=== PATIENT | female | born 1985 | race American Indian/Alaskan Native ===

== ENCOUNTER 2016-06-17 15:23 | Emergency (ER) | payer MEDICAID ==
[2016-06-17 17:19] LABS: Basophils % (Auto) 1.1 % (0.0-1.8); Eosinophils % (Auto) 1.3 % (0.0-4.3); Hematocrit 40.8 % (30.3-42.9); Hemoglobin 13.4 gm/dl (10.1-14.3); Mean Corpuscular HGB Conc 33 % (30-34); Mean Corpuscular Hemoglobin 29 pg (28-32); Mean Corpuscular Volume 87 fl (79-97); Platelet Count 344 K/mm3 (140-440); Red Cell Distribution Width 13.3 % (13.2-15.2); White Blood Count 7.9 K/mm3 (4.5-11.0)
[2016-06-17 17:27] LABS: Alanine Aminotransferase 14 units/L (7-56); Albumin 4.2 g/dL (3.9-5); Albumin/Globulin Ratio 1.1 %; Alkaline Phosphatase 76 units/L (35-129); BUN/Creatinine Ratio 12.85; Bilirubin,Total 0.5 mg/dL (0.1-1.2); Blood Urea Nitrogen 9 mg/dL (7-17); Carbon Dioxide 27 mmol/L (22-30); Glucose 97 mg/dL (65-100); Lipase 24 units/L (13-60)
[2016-06-17 17:28] LABS: Anion Gap 16 mmol/L; Potassium 3.9 mmol/L (3.6-5.0); Sodium 139 mmol/L (137-145)
[2016-06-18] MEDS ORDERED: MORPHINE IV ONE ×2 (02:18→05:07)
[2016-06-18] MEDS ORDERED: NACL 0.9% 1000 ML 1,000 ML IV ONE ×2 (02:18→05:07)
[2016-06-18] MEDS ORDERED: ZOFRAN IV ONE ×2 (02:18→05:07)
--- NOTE | 2016-06-18 02:27 | Emergency Department Report ---
ED Abdominal Pain HPI - General Chief Complaint: Abdominal Pain Stated Complaint: FEVER/RASH/DIARRHEA/ABD PAIN Time Seen by Provider: 06/18/16 01:11 Source: patient Mode of arrival: Ambulatory Limitations: No Limitations - History of Present Illness Initial Comments: 30-year-old female presents emergency department complaining of back pain, abdominal pain, and diarrhea. Patient reports onset of symptoms last night. Patient describes a sharp, burning pain in her lower back that radiates into her abdomen. Patient also reports a pulling sensation in her abdomen. Patient reports profuse, watery diarrhea last night. She denies seeing blood. She reports nausea, but no vomiting. Patient states she also had a fever of 103F at home. Patient states that she has not been able to urinate since last she had a bowel movement which was approximately midnight last night. There are no other complaints. MD Complaint: abdominal pain -: Gradual, days(s) (1) Location: diffuse Migration to: no migration Quality: sharp, other ("pulling") Consistency: constant Improves With: nothing Worsens With: nothing Associated Symptoms: nausea, diarrhea, fever - Related Data Previous Rx's Medication Instructions Recorded Last Taken Type Acetaminophen/Codeine [Tylenol #3] 1 tab PO Q6H PRN #10 tab 07/12/13 Unknown Rx Fluconazole [Diflucan TAB] 150 mg PO ONCE #2 tablet 03/26/15 Unknown Rx Nitrofurantoin [place]/M-Cryst 100 mg PO Q12HR #14 capsule 03/26/15 Unknown Rx [Macrobid CAP] Diphenoxylate/Atropine [Lomotil] 1 tab PO Q4H PRN #20 tablet 06/18/16 Unknown Rx Promethazine [Phenergan TAB] 25 mg PO Q6HR PRN #20 tab 06/18/16 Unknown Rx traMADol [Ultram] 50 mg PO Q6HR PRN #20 tablet 06/18/16 Unknown Rx Allergies Allergy/AdvReac Type Severity Reaction Status Date / Time acetaminophen [From Tylenol] Allergy Rash Verified 06/17/16 16:17 latex Allergy Hives Verified 06/17/16 16:17 Penicillins Allergy Hives Verified 06/17/16 16:17 ED Review of Systems ROS: Stated complaint: FEVER/RASH/DIARRHEA/ABD PAIN Other details as noted in HPI Comment: All other systems reviewed and negative Constitutional: fever Gastrointestinal: abdominal pain, nausea, diarrhea Genitourinary: as per HPI Musculoskeletal: back pain ED Past Medical Hx - Past Medical History Previous Medical History?: Yes Hx Hypertension: Yes - Surgical History Past Surgical History?: Yes Additional Surgical History: C-Sections 2007, 2009. mass removed from abd in 2014 - Family History Family history: no significant - Social History Smoking Status: Never Smoker Substance Use Type: None - Medications Home Medications: Home Medications Medication Instructions Recorded Confirmed Last Taken Type Acetaminophen/Codeine [Tylenol #3] 1 tab PO Q6H PRN #10 tab 07/12/13 Unknown Rx Fluconazole [Diflucan TAB] 150 mg PO ONCE #2 tablet 03/26/15 Unknown Rx Nitrofurantoin [place]/M-Cryst 100 mg PO Q12HR #14 capsule 03/26/15 Unknown Rx [Macrobid CAP] Diphenoxylate/Atropine [Lomotil] 1 tab PO Q4H PRN #20 tablet 06/18/16 Unknown Rx Promethazine [Phenergan TAB] 25 mg PO Q6HR PRN #20 tab 06/18/16 Unknown Rx traMADol [Ultram] 50 mg PO Q6HR PRN #20 tablet 06/18/16 Unknown Rx ED Physical Exam - General Limitations: No Limitations General appearance: alert, in no apparent distress - Head Head exam: Present: atraumatic, normocephalic - Eye Eye exam: Present: normal appearance, PERRL, EOMI - ENT ENT exam: Present: normal exam, normal orophraynx, mucous membranes moist - Neck Neck exam: Present: normal inspection, full ROM. Absent: tenderness - Respiratory Respiratory exam: Present: normal lung sounds bilaterally. Absent: respiratory distress - Cardiovascular Cardiovascular Exam: Present: regular rate, normal rhythm, normal heart sounds - GI/Abdominal GI/Abdominal exam: Present: soft, tenderness (mild right lower quadrant tenderness to palpation), normal bowel sounds. Absent: distended, guarding, rebound - Extremities Exam Extremities exam: Present: normal inspection, full ROM. Absent: tenderness - Back Exam Back exam: Present: normal inspection, full ROM, tenderness (diffuse lumbar tenderness to palpation) - Neurological Exam Neurological exam: Present: alert, oriented X3. Absent: motor sensory deficit - Skin Skin exam: Present: warm, dry, intact ED Course Vital Signs 06/17/16 06/18/16 06/18/16 16:13 00:22 00:26 Temperature 98.3 F Pulse Rate 95 H 77 73 Respiratory 16 12 14 Rate Blood Pressure 127/92 129/80 O2 Sat by Pulse 100 99 Oximetry 06/18/16 06/18/16 06/18/16 00:30 00:36 00:40 Temperature Pulse Rate 80 76 76 Respiratory 19 18 15 Rate Blood Pressure 129/80 123/74 123/74 O2 Sat by Pulse 100 100 100 Oximetry 06/18/16 06/18/16 06/18/16 00:45 00:50 00:56 Temperature Pulse Rate 71 70 79 Respiratory 12 12 17 Rate Blood Pressure 122/72 122/72 122/72 O2 Sat by Pulse 100 100 100 Oximetry 06/18/16 06/18/16 06/18/16 01:00 01:06 01:10 Temperature Pulse Rate 65 77 87 Respiratory 17 14 13 Rate Blood Pressure 123/72 123/72 123/72 O2 Sat by Pulse 100 100 100 Oximetry 06/18/16 06/18/16 06/18/16 01:15 01:20 01:26 Temperature Pulse Rate 76 72 77 Respiratory 17 18 16 Rate Blood Pressure 132/83 132/83 132/83 O2 Sat by Pulse 100 100 100 Oximetry 06/18/16 06/18/16 06/18/16 01:30 01:36 01:40 Temperature Pulse Rate 65 72 77 Respiratory 17 19 20 Rate Blood Pressure 128/81 128/81 128/81 O2 Sat by Pulse 100 100 100 Oximetry 06/18/16 06/18/16 06/18/16 01:45 01:50 01:56 Temperature Pulse Rate 72 81 73 Respiratory 14 15 13 Rate Blood Pressure 131/86 131/86 131/86 O2 Sat by Pulse 100 100 100 Oximetry 06/18/16 06/18/16 06/18/16 02:00 02:06 02:10 Temperature Pulse Rate 74 70 85 Respiratory 15 18 17 Rate Blood Pressure 135/86 135/86 135/86 O2 Sat by Pulse 100 100 99 Oximetry 06/18/16 06/18/16 06/18/16 02:15 02:20 02:26 Temperature Pulse Rate 68 73 75 Respiratory 16 20 19 Rate Blood Pressure 137/84 137/84 137/84 O2 Sat by Pulse 100 99 100 Oximetry 06/18/16 06/18/16 06/18/16 02:30 02:36 02:40 Temperature Pulse Rate 69 70 70 Respiratory 8 L 12 10 L Rate Blood Pressure 134/78 134/78 134/78 O2 Sat by Pulse 99 100 100 Oximetry 06/18/16 02:45 Temperature Pulse Rate 87 Respiratory 17 Rate Blood Pressure 119/74 O2 Sat by Pulse 100 Oximetry ED Medical Decision Making - Lab Data Result diagrams: 06/17/16 16:55 06/17/16 16:55 - Medical Decision Making Lab results reviewed and discussed with the patient. Following IV fluids, the patient was able to spontaneously urinate. Giving additional IV fluids. Patient will be discharged home with supportive care to follow-up with her primary care physician. - Differential Diagnosis enteritis, dehydration, electrolyte abnormality, UTI, muscle spasm Critical care attestation.: If time is entered above; I have spent that time in minutes in the direct care of this critically ill patient, excluding procedure time. ED Disposition Clinical Impression: Diarrhea in adult patient Disposition: DISCHARGED TO HOME OR SELFCARE Is pt being admited?: No Condition: Stable Instructions: Abdominal Pain (ED), Acute Diarrhea (ED) Prescriptions: Diphenoxylate/Atropine [Lomotil] 1 tab PO Q4H PRN #20 tablet PRN Reason: Diarrhea Promethazine [Phenergan TAB] 25 mg PO Q6HR PRN #20 tab PRN Reason: Nausea traMADol [Ultram] 50 mg PO Q6HR PRN #20 tablet PRN Reason: Pain Referrals: PRIMARY CARE, [Primary Care Provider] - 3-5 Days Time of Disposition: 05:41
[2016-06-18 02:57] VITALS: BP 119/74
[2016-06-18 04:48] LABS: Bacteria,Urine 1+ /HPF (Negative); Bilirubin,Urine NEG (Negative); Blood,Urine NEG (Negative); Ketones,Urine NEG (Negative); Leukocyte Esterase,Urine NEG (Negative); Mucus,Urine 2+ /HPF; Nitrite,Urine NEG (Negative); Protein,Urine <15 mg/dL mg/dL (Negative); Urobilinogen,Urine < 2.0 mg/dL (<2.0)
== END 2016-06-18 07:08 | disposition home or self-care (01) ==
LOC: ED 15:23
DX: R19.7 Diarrhea, unspecified (principal); R10.31 Right lower quadrant pain; M54.5 Low back pain; I10 Essential (primary) hypertension; Z88.0 Allergy status to penicillin; Z91.040 Latex allergy status; Z88.8 Allergy status to other drugs, medicaments and biological substances
CPT/HCPCS: 36415; 51701; 80053; 81001; 81025; 83690; 85025; 96361; 96374; 96375; 96376; 99284; J2270; J2405; J7030; 82962

== ENCOUNTER 2016-12-16 09:32 | Emergency (ER) | payer SELFPAY ==
--- NOTE | 2016-12-16 11:44 | Emergency Department Report ---
ED ENT HPI - General Chief complaint: Sore Throat Stated complaint: STIFF NECK/FEVER/ SORE THROAT Time Seen by Provider: 12/16/16 11:25 Source: patient Mode of arrival: Ambulatory Limitations: No Limitations - History of Present Illness Initial comments: pt is a 31 y/o aaf with hx of frequent sinusitis who presents for sinus pain fever and sore throat x 1 week, note white patches on tonsils x 4 days which prompted pt to seek treatment in ed. associated symptoms include fever 102. 3 subjective at home, dysphagia, and sinus pressure. pt has not attempted otc pain or cold medicine, MD complaint: sore throat, ear pain Onset/Timin -: week(s) Location: R ear, L ear, nose, throat Severity: moderate Severity scale (0 -10): 7 Quality: burning, sharp Consistency: constant Improves with: none Worsens with: swallowing, position Associated Symptoms: fever, cough, pain with swallowing, sore throat, tinnitus, rhinorrhea - Related Data Previous Rx's Medication Instructions Recorded Last Taken Type Acetaminophen/Codeine [Tylenol #3] 1 tab PO Q6H PRN #10 tab 07/12/13 Unknown Rx Fluconazole [Diflucan TAB] 150 mg PO ONCE #2 tablet 03/26/15 Unknown Rx Nitrofurantoin [place]/M-Cryst 100 mg PO Q12HR #14 capsule 03/26/15 Unknown Rx [Macrobid CAP] Diphenoxylate/Atropine [Lomotil] 1 tab PO Q4H PRN #20 tablet 06/18/16 Unknown Rx Promethazine [Phenergan TAB] 25 mg PO Q6HR PRN #20 tab 06/18/16 Unknown Rx traMADol [Ultram] 50 mg PO Q6HR PRN #20 tablet 06/18/16 Unknown Rx Benzocaine/Menth/Cetylpyrd 8 each MM QID PRN #3 packet 12/16/16 Unknown Rx [Cepacol X Strength] Clindamycin [Clindamycin CAP] 300 mg PO Q8H #30 cap 12/16/16 Unknown Rx Ibuprofen [Motrin 800 MG tab] 800 mg PO Q8HR PRN #30 tablet 12/16/16 Unknown Rx Oxymetazoline 0.05% [Afrin] 1 spray NS 2XWHS #1 bottle 12/16/16 Unknown Rx Allergies Allergy/AdvReac Type Severity Reaction Status Date / Time acetaminophen [From Tylenol] Allergy Rash Verified 06/17/16 16:17 latex Allergy Hives Verified 06/17/16 16:17 Penicillins Allergy Hives Verified 06/17/16 16:17 sulfamethoxazole Allergy Swelling Verified 12/16/16 09:49 [From Bactrim] trimethoprim [From Bactrim] Allergy Swelling Verified 12/16/16 09:49 ED Dental HPI - General Chief complaint: Sore Throat Stated complaint: STIFF NECK/FEVER/ SORE THROAT Time Seen by Provider: 12/16/16 11:25 Source: patient Mode of arrival: Ambulatory Limitations: No Limitations - Related Data Previous Rx's Medication Instructions Recorded Last Taken Type Acetaminophen/Codeine [Tylenol #3] 1 tab PO Q6H PRN #10 tab 07/12/13 Unknown Rx Fluconazole [Diflucan TAB] 150 mg PO ONCE #2 tablet 03/26/15 Unknown Rx Nitrofurantoin [place]/M-Cryst 100 mg PO Q12HR #14 capsule 03/26/15 Unknown Rx [Macrobid CAP] Diphenoxylate/Atropine [Lomotil] 1 tab PO Q4H PRN #20 tablet 06/18/16 Unknown Rx Promethazine [Phenergan TAB] 25 mg PO Q6HR PRN #20 tab 06/18/16 Unknown Rx traMADol [Ultram] 50 mg PO Q6HR PRN #20 tablet 06/18/16 Unknown Rx Benzocaine/Menth/Cetylpyrd 8 each MM QID PRN #3 packet 12/16/16 Unknown Rx [Cepacol X Strength] Clindamycin [Clindamycin CAP] 300 mg PO Q8H #30 cap 12/16/16 Unknown Rx Ibuprofen [Motrin 800 MG tab] 800 mg PO Q8HR PRN #30 tablet 12/16/16 Unknown Rx Oxymetazoline 0.05% [Afrin] 1 spray NS 2XWHS #1 bottle 12/16/16 Unknown Rx Allergies Allergy/AdvReac Type Severity Reaction Status Date / Time acetaminophen [From Tylenol] Allergy Rash Verified 06/17/16 16:17 latex Allergy Hives Verified 06/17/16 16:17 Penicillins Allergy Hives Verified 06/17/16 16:17 sulfamethoxazole Allergy Swelling Verified 12/16/16 09:49 [From Bactrim] trimethoprim [From Bactrim] Allergy Swelling Verified 12/16/16 09:49 ED Review of Systems ROS: Stated complaint: STIFF NECK/FEVER/ SORE THROAT Other details as noted in HPI ED Past Medical Hx - Past Medical History Previous Medical History?: Yes Hx Hypertension: Yes - Surgical History Past Surgical History?: Yes Additional Surgical History: C-Sections 2007, 2009. mass removed from abd in 2014 - Social History Smoking Status: Current Some Day Smoker Substance Use Type: Alcohol - Medications Home Medications: Home Medications Medication Instructions Recorded Confirmed Last Taken Type Acetaminophen/Codeine [Tylenol #3] 1 tab PO Q6H PRN #10 tab 07/12/13 Unknown Rx Fluconazole [Diflucan TAB] 150 mg PO ONCE #2 tablet 03/26/15 Unknown Rx Nitrofurantoin [place]/M-Cryst 100 mg PO Q12HR #14 capsule 03/26/15 Unknown Rx [Macrobid CAP] Diphenoxylate/Atropine [Lomotil] 1 tab PO Q4H PRN #20 tablet 06/18/16 Unknown Rx Promethazine [Phenergan TAB] 25 mg PO Q6HR PRN #20 tab 06/18/16 Unknown Rx traMADol [Ultram] 50 mg PO Q6HR PRN #20 tablet 06/18/16 Unknown Rx Benzocaine/Menth/Cetylpyrd 8 each MM QID PRN #3 packet 12/16/16 Unknown Rx [Cepacol X Strength] Clindamycin [Clindamycin CAP] 300 mg PO Q8H #30 cap 12/16/16 Unknown Rx Ibuprofen [Motrin 800 MG tab] 800 mg PO Q8HR PRN #30 tablet 12/16/16 Unknown Rx Oxymetazoline 0.05% [Afrin] 1 spray NS 2XWHS #1 bottle 12/16/16 Unknown Rx ED Physical Exam - General Limitations: No Limitations - Head Head exam: Present: atraumatic, normocephalic - Eye Eye exam: Present: normal appearance, PERRL, EOMI Pupils: Present: normal accommodation - Expanded ENT Exam Expanded TM/Canal exam: Erythema: Right TM, Left TM, Canal Tenderness: Right TM, Left TM Mouth exam: Present: tongue normal. Absent: drooling, trismus, muffled voice, tongue elevation, laceration Teeth exam: Present: normal inspection Throat exam: Positive: tonsillar erythema, tonsillomegaly, tonsillar exudate. Negative: R peritonsillar mass, L peritonsillar mass - Neck Neck exam: Present: normal inspection, full ROM, lymphadenopathy. Absent: tenderness, thyromegaly - Respiratory Respiratory exam: Present: normal lung sounds bilaterally. Absent: respiratory distress, wheezes, rhonchi, stridor, chest wall tenderness - Cardiovascular Cardiovascular Exam: Present: regular rate, normal rhythm. Absent: systolic murmur, diastolic murmur, rubs, gallop - GI/Abdominal GI/Abdominal exam: Present: soft, normal bowel sounds - Rectal Rectal exam: Present: deferred - Extremities Exam Extremities exam: Present: normal inspection - Back Exam Back exam: Present: normal inspection - Neurological Exam Neurological exam: Present: alert, oriented X3, normal gait, reflexes normal - Psychiatric Psychiatric exam: Present: normal affect, normal mood - Skin Skin exam: Present: warm, dry, intact, normal color. Absent: rash ED Course Vital Signs 12/16/16 09:46 Temperature 98.5 F Pulse Rate 98 H Respiratory 18 Rate Blood Pressure 153/100 O2 Sat by Pulse 100 Oximetry ED Medical Decision Making - Medical Decision Making pt is a 31 y/o aaf with hx of frequent sinusitis who presents for sinus pain fever and sore throat x 1 week, note white patches on tonsils x 4 days which prompted pt to seek treatment in ed. associated symptoms include fever 102. 3 subjective at home, dysphagia, and sinus pressure. pt has not attempted otc pain or cold medicine, exam: tm bilat erythema pain no effusion , nose: polyps turbinate erythema yellow rhinorrhea , pharnyx: moderate erythem white exudate, no lesion uvula midline no stridor lungs clear bilat, pt is allergic to pcn, advise zpack ususally dose not work, will tx with Clindamycin , Ibuprofen, Afrin x 3 days, Cepacol lozenges pt will follow up with [facility] for follow and pcp affiliation pt verbalized agreement and understanding with same. Critical care attestation.: If time is entered above; I have spent that time in minutes in the direct care of this critically ill patient, excluding procedure time. ED Disposition Clinical Impression: Pharyngitis Qualifiers: Pharyngitis/tonsillitis etiology: other specified organisms Qualified Code(s): J02.8 - Acute pharyngitis due to other specified organisms Disposition: DC-01 TO HOME OR SELFCARE Is pt being admited?: No Does the pt Need Aspirin: No Condition: Good Instructions: Pharyngitis (ED) Additional Instructions: follow up with [facility] [phone] Prescriptions: Benzocaine/Menth/Cetylpyrd [Cepacol X Strength] 8 each MM QID PRN #3 packet PRN Reason: Pain Clindamycin [Clindamycin CAP] 300 mg PO Q8H #30 cap Ibuprofen [Motrin 800 MG tab] 800 mg PO Q8HR PRN #30 tablet PRN Reason: pain / fever Oxymetazoline 0.05% [Afrin] 1 spray NS 2XWHS #1 bottle Referrals: PRIMARY CARE, [Primary Care Provider] - 3-5 Days Forms: Work/School Release Form(ED) Time of Disposition: 11:55
[2016-12-16 12:01] VITALS: BP 132/94
== END 2016-12-16 12:01 | disposition home or self-care (01) ==
LOC: ED 09:32
DX: J02.8 Acute pharyngitis due to other specified organisms (principal); I10 Essential (primary) hypertension; F17.200 Nicotine dependence, unspecified, uncomplicated
CPT/HCPCS: 99282

== ENCOUNTER 2017-01-30 22:01 | Emergency (ER) | payer SELFPAY ==
[2017-01-30] MEDS ORDERED: TORADOL ONE (22:26)
[2017-01-30] MEDS ORDERED: ZESTRIL ONE (22:27)
[2017-01-30] MEDS ORDERED: ZESTRIL PO ONE (22:29)
[2017-01-30] MEDS ORDERED: TORADOL IM ONE (22:30)
--- NOTE | 2017-01-30 23:17 | XRay Report ---
FINAL REPORT PROCEDURE: XR ANKLE 3+V LT TECHNIQUE: LEFT ankle radiographs, AP, lateral, and oblique views. CPT 47904 HISTORY: fall ankle pain COMPARISON: No prior studies are available for comparison. FINDINGS: Internal fixation screws are identified in the lateral malleolus and posterior talus. An acute fracture is not identified. Narrowing of the talar navicular joint space is noted. IMPRESSION: Internal fixation screws are noted through the lateral malleolus and posterior talus. Comparison with prior studies would be of help. No acute fracture. Osteoarthritis..
[2017-01-31 03:51] VITALS: BP 142/97
--- NOTE | 2017-01-31 03:59 | XRay Report ---
FINAL REPORT EXAM: XR SPINE LUMBOSACRAL 2-3V HISTORY: fall on her lower back TECHNIQUE: Three views the lumbar spine were obtained. FINDINGS: There is moderate narrowing of the L5-S1 disc. The remaining disc heights and alignment appear normal. There is no evidence of fracture. The soft tissues are unremarkable. IMPRESSION: L5-S1 disc degeneration. No acute injury.
--- NOTE | 2017-01-31 04:00 | XRay Report ---
FINAL REPORT EXAM: XR SPINE SACRUM/COCCYX 2+V HISTORY: fall TECHNIQUE: Four views of the sacrum and coccyx were obtained. FINDINGS: There is no evidence of fracture or soft tissue injury. The SI joints appear normal. IMPRESSION: Normal exam.
--- NOTE | 2017-01-31 04:23 | Emergency Department Report ---
ED Back Pain/Injury HPI - General Chief Complaint: Back Pain/Injury Stated Complaint: GROUND LEVEL FALL/LT ANKLE PX/BACK PX Time Seen by Provider: 01/31/17 02:57 Source: patient Limitations: No Limitations - History of Present Illness Initial Comments: 30-year-old female presents here with complaints of fall while going down some steps. This happened 5 days ago. Patient fell backwards on her lower back and tailbone. Patient has used the leftover ultram from a prior problem and this has not produced much relief. No fecal or urinary incontinence. Patient is experiencing pain radiating down the posterior aspect of her left leg -: Sudden, days(s) (5, pain is progressively getting worse) Similar Symptoms Previously: Yes Place: home Radiation: left leg (posterior aspect) Severity: moderate Severity scale (0 -10): 8 Quality: sharp, stabbing, aching, tingling Consistency: constant Improves With: immobilization Worsens With: movement, supine, sitting upright, walking Associated Symptoms: weakness, numbness (posterior aspect left leg), difficulty walking. denies: confusion, chest pain, difficulty urinating, diaphoresis, incontinence, fever/chills, constipation, headaches, abdominal pain, loss of appetite, malaise, nausea/vomiting, rash, seizure, shortness of breath, syncope - Related Data Previous Rx's Medication Instructions Recorded Last Taken Type Acetaminophen/Codeine [Tylenol #3] 1 tab PO Q6H PRN #10 tab 07/12/13 Unknown Rx Fluconazole [Diflucan TAB] 150 mg PO ONCE #2 tablet 03/26/15 Unknown Rx Nitrofurantoin [place]/M-Cryst 100 mg PO Q12HR #14 capsule 03/26/15 Unknown Rx [Macrobid CAP] Diphenoxylate/Atropine [Lomotil] 1 tab PO Q4H PRN #20 tablet 06/18/16 Unknown Rx Promethazine [Phenergan TAB] 25 mg PO Q6HR PRN #20 tab 06/18/16 Unknown Rx Benzocaine/Menth/Cetylpyrd 8 each MM QID PRN #3 packet 12/16/16 Unknown Rx [Cepacol X Strength] Clindamycin [Clindamycin CAP] 300 mg PO Q8H #30 cap 12/16/16 Unknown Rx Oxymetazoline 0.05% [Afrin] 1 spray NS 2XWHS #1 bottle 12/16/16 Unknown Rx Ibuprofen [Motrin 800 MG tab] 800 mg PO Q8HR PRN #30 tablet 01/31/17 Unknown Rx Lisinopril [Zestril TAB] 20 mg PO QDAY #30 tablet 01/31/17 Unknown Rx Methocarbamol [Robaxin-750] 1,500 mg PO TID #30 tablet 01/31/17 Unknown Rx traMADol [Ultram 50 MG tab] 50 mg PO Q6HR PRN #20 tablet 01/31/17 Unknown Rx Allergies Allergy/AdvReac Type Severity Reaction Status Date / Time acetaminophen [From Tylenol] Allergy Rash Verified 06/17/16 16:17 latex Allergy Hives Verified 06/17/16 16:17 Penicillins Allergy Hives Verified 06/17/16 16:17 sulfamethoxazole Allergy Swelling Verified 12/16/16 09:49 [From Bactrim] trimethoprim [From Bactrim] Allergy Swelling Verified 12/16/16 09:49 ED Review of Systems ROS: Stated complaint: GROUND LEVEL FALL/LT ANKLE PX/BACK PX Other details as noted in HPI Comment: All other systems reviewed and negative Constitutional: denies: chills, diaphoresis, fever, malaise Eyes: denies: eye pain, eye discharge, vision change ENT: denies: throat pain, dental pain, hearing loss, epistaxis Respiratory: denies: see HPI, cough, shortness of breath, SOB with exertion Cardiovascular: denies: chest pain, palpitations, dyspnea on exertion, edema, syncope, paroxysmal nocturnal dyspnea Endocrine: no symptoms reported Gastrointestinal: denies: abdominal pain, nausea, vomiting, diarrhea, constipation Genitourinary: denies: dysuria, frequency, hematuria, discharge Musculoskeletal: as per HPI, back pain, myalgia, other (pain radiating down left leg posterior aspect) Neurological: weakness, numbness (left leg, lower back), paresthesias ED Past Medical Hx - Past Medical History Previous Medical History?: Yes Hx Hypertension: Yes - Surgical History Past Surgical History?: Yes Additional Surgical History: C-Sections 2007, 2009. mass removed from abd in 2014. L. ankle pain - Social History Smoking Status: Never Smoker - Medications Home Medications: Home Medications Medication Instructions Recorded Confirmed Last Taken Type Acetaminophen/Codeine [Tylenol #3] 1 tab PO Q6H PRN #10 tab 04/04/14 Unknown Rx Fluconazole [Diflucan TAB] 150 mg PO ONCE #2 tablet 03/26/15 Unknown Rx Nitrofurantoin [place]/M-Cryst 100 mg PO Q12HR #14 capsule 03/26/15 Unknown Rx [Macrobid CAP] Diphenoxylate/Atropine [Lomotil] 1 tab PO Q4H PRN #20 tablet 06/18/16 Unknown Rx Promethazine [Phenergan TAB] 25 mg PO Q6HR PRN #20 tab 06/18/16 Unknown Rx Benzocaine/Menth/Cetylpyrd 8 each MM QID PRN #3 packet 12/16/16 Unknown Rx [Cepacol X Strength] Clindamycin [Clindamycin CAP] 300 mg PO Q8H #30 cap 12/16/16 Unknown Rx Oxymetazoline 0.05% [Afrin] 1 spray NS 2XWHS #1 bottle 12/16/16 Unknown Rx Ibuprofen [Motrin 800 MG tab] 800 mg PO Q8HR PRN #30 tablet 01/31/17 Unknown Rx Lisinopril [Zestril TAB] 20 mg PO QDAY #30 tablet 01/31/17 Unknown Rx Methocarbamol [Robaxin-750] 1,500 mg PO TID #30 tablet 01/31/17 Unknown Rx traMADol [Ultram 50 MG tab] 50 mg PO Q6HR PRN #20 tablet 01/31/17 Unknown Rx ED Physical Exam - General Limitations: No Limitations, Other (blood pressure is elevated) General appearance: alert, anxious, in distress (in moderate distress) - Head Head exam: Present: atraumatic, normocephalic - Eye Eye exam: Present: normal appearance, PERRL, EOMI. Absent: scleral icterus, conjunctival injection, nystagmus - ENT ENT exam: Present: normal exam, normal orophraynx, mucous membranes moist - Neck Neck exam: Present: normal inspection, full ROM. Absent: tenderness, meningismus, lymphadenopathy - Respiratory Respiratory exam: Present: normal lung sounds bilaterally. Absent: respiratory distress, wheezes, rales, rhonchi, chest wall tenderness, accessory muscle use, decreased breath sounds, prolonged expiratory - Cardiovascular Cardiovascular Exam: Present: normal rhythm, tachycardia, normal heart sounds. Absent: systolic murmur, diastolic murmur - GI/Abdominal GI/Abdominal exam: Present: soft, distended (obese abdomen), normal bowel sounds. Absent: guarding, rebound, rigid, hyperactive bowel sounds, hypoactive bowel sounds, organomegaly, mass, bruit - Rectal Rectal exam: Present: deferred - Extremities Exam Extremities exam: Present: normal inspection, full ROM, normal capillary refill. Absent: tenderness, pedal edema - Back Exam Back exam: Present: tenderness (lumbar region and sacral region), muscle spasm, paraspinal tenderness, vertebral tenderness. Absent: CVA tenderness (R), CVA tenderness (L), rash noted - Neurological Exam Neurological exam: Present: alert, oriented X3, CN II-XII intact, abnormal gait , motor sensory deficit ED Course Vital Signs 01/30/17 01/30/17 01/31/17 22:06 22:18 03:49 Temperature 98.8 F 98.8 F 98.7 F Pulse Rate 116 H 102 H 81 Respiratory 20 16 16 Rate Blood Pressure 155/116 165/115 Blood Pressure 142/97 [Right] O2 Sat by Pulse 100 100 99 Oximetry ED Medical Decision Making - Radiology Data Radiology results: report reviewed, image reviewed Critical Care Time: No Critical care attestation.: If time is entered above; I have spent that time in minutes in the direct care of this critically ill patient, excluding procedure time. ED Disposition Clinical Impression: Low back pain, Hypertension Disposition: TO HOME OR SELFCARE Is pt being admited?: No Does the pt Need Aspirin: No Condition: Stable Instructions: Hypertension (ED), Low Back Strain (ED), Lumbar Radiculopathy (ED ), Acute Low Back Pain (ED) Additional Instructions: Low-salt diet, you are advised to lose some weight, follow up with any doctor in your district for continued care Prescriptions: Ibuprofen [Motrin 800 MG tab] 800 mg PO Q8HR PRN #30 tablet PRN Reason: pain / fever Lisinopril [Zestril TAB] 20 mg PO QDAY #30 tablet Methocarbamol [Robaxin-750] 1,500 mg PO TID #30 tablet traMADol [Ultram 50 MG tab] 50 mg PO Q6HR PRN #20 tablet PRN Reason: Pain Referrals: PRIMARY CARE, [Primary Care Provider] - 3-5 Days Time of Disposition: 04:35
== END 2017-01-31 04:40 | disposition home or self-care (01) ==
LOC: ED 22:01
DX: M54.5 Low back pain (principal); I10 Essential (primary) hypertension; Z88.0 Allergy status to penicillin; Z88.8 Allergy status to other drugs, medicaments and biological substances; Z88.6 Allergy status to analgesic agent; Z88.1 Allergy status to other antibiotic agents; Z91.040 Latex allergy status
CPT/HCPCS: 72100; 72220; 73610; 96372; 99283; J1885

== ENCOUNTER 2017-11-08 19:08 | Emergency (ER) | payer SELFPAY ==
[2017-11-08] MEDS ORDERED: ASPIRIN PO ONE (19:33)
[2017-11-08] MEDS ORDERED: CATAPRES ONE (19:50)
[2017-11-08 19:55] LABS: Basophils # (Auto) 0.1 K/mm3 (0.0-0.1); Basophils % (Auto) 0.8 % (0.0-1.8); Eosinophils # (Auto) 0.2 K/mm3 (0.0-0.4); Eosinophils % (Auto) 2.8 % (0.0-4.3); Hematocrit 38.5 % (30.3-42.9); Lymphocytes # (Auto) 3.4 K/mm3 (1.2-5.4); Lymphocytes % (Auto) 42.1 % (13.4-35.0); Mean Corpuscular HGB Conc 34 % (30-34); Mean Corpuscular Hemoglobin 30 pg (28-32); Mean Corpuscular Volume 88 fl (79-97); Monocytes # (Auto) 0.4 K/mm3 (0.0-0.8); Monocytes % (Auto) 5.4 % (0.0-7.3); Platelet Count 328 K/mm3 (140-440); Red Blood Count 4.36 M/mm3 (3.65-5.03); Red Cell Distribution Width 14.4 % (13.2-15.2)
[2017-11-08] MEDS ORDERED: CATAPRES PO ONE (19:58)
[2017-11-08 20:11] LABS: BUN/Creatinine Ratio 15; Blood Urea Nitrogen 9 mg/dL (7-17); Hemolysis Index 3
[2017-11-08 20:58] LABS: Bacteria,Urine 1+ /HPF (Negative); Bilirubin,Urine NEG (Negative); Blood,Urine NEG (Negative); Color,Urine Yellow (Yellow); Mucus,Urine FEW /HPF; Protein,Urine <15 mg/dL mg/dL (Negative); Urobilinogen,Urine < 2.0 mg/dL (<2.0)
[2017-11-08] MEDS ORDERED: ZOFRAN ODT PO ONE (21:01)
[2017-11-08] MEDS ORDERED: ZOFRAN IV ONE (21:09)
[2017-11-08] MEDS ORDERED: TORADOL IV ONE (21:09)
[2017-11-08] MEDS ORDERED: BENADRYL IV ONE (21:09)
--- NOTE | 2017-11-08 21:22 | XRay Report ---
FINAL REPORT PROCEDURE: XR CHEST 1V AP TECHNIQUE: Chest radiograph anteroposterior view. CPT 59961 HISTORY: chest pain COMPARISON: No prior studies are available for comparison. FINDINGS: Heart: Normal. Mediastinum/Vessels: Normal. Lungs/Pleural space: Normal. Bony thorax: No acute osseous abnormality. Life support devices: None. IMPRESSION: No acute cardiopulmonary abnormality.
[2017-11-08] MEDS ORDERED: SUBLIMAZE IV ONE (21:44)
[2017-11-08] MEDS ORDERED: APRESOLINE IV ONE (21:45)
--- NOTE | 2017-11-08 21:51 | Emergency Department Report ---
HPI - General Chief Complaint: Chest Pain Time Seen by Provider: 11/08/17 20:59 - HPI HPI: The patient is a 32-year-old female presents for evaluation of chest pain and abdominal pain. The patient reports left-sided abdominal pain for the past one month, radiating into the chest, currently 9/10 in severity, sharp in quality, and is exacerbated with dry heaving. She is also has nausea, and multiple episodes of nonbilious, nonbloody emesis. Chest secondary complaint of a mild achy migraine headache for the past day. The patient denies fever, chills, night sweats, some to the head, neck pain or stiffness, paresthesia, lateralizing weakness, cough, dyspnea, hemoptysis, diarrhea, blood in the stool , dark tarry stool, dysuria, hematuria, flank pain, genital discharge, inability to pass flatus. ED Past Medical Hx - Past Medical History Previous Medical History?: Yes Hx Hypertension: Yes Hx Diabetes: Yes (gestational) - Surgical History Past Surgical History?: Yes Additional Surgical History: C-Sections 2007, 2009. mass removed from abd in 2014. L. ankle pain - Social History Smoking Status: Current Every Day Smoker Substance Use Type: None - Medications Home Medications: Home Medications Medication Instructions Recorded Confirmed Last Taken Type Promethazine [Phenergan TAB] 25 mg PO Q6HR PRN #20 tab 06/18/16 11/08/17 Unknown Rx Lisinopril [Zestril TAB] 20 mg PO QDAY #30 tablet 01/31/17 11/08/17 Unknown Rx traMADol [Ultram 50 MG tab] 50 mg PO Q6HR PRN #20 tablet 01/31/17 11/08/17 Unknown Rx Butalb/Acetaminophen/Caffeine 1 - 2 cap PO Q6HR PRN #12 cap 11/09/17 Unknown Rx [Fioricet 50-300-40 mg CAP] Ondansetron [Zofran TAB] 4 mg PO Q8HR PRN #15 tablet 11/09/17 Unknown Rx ED Review of Systems ROS: Stated complaint: CHEST PAIN,HEADACHE, ABD PAINS Other details as noted in HPI Constitutional: denies: fever ENT: denies: throat or neck pain Respiratory: denies: cough, shortness of breath Cardiovascular: reports: chest pain Endocrine: denies unexplained weight loss or gain Gastrointestinal: reports: abdominal pain, nausea Genitourinary: denies: dysuria Musculoskeletal: denies: leg swelling Skin: denies: rash Neurological: reports: headache Hematological/Lymphatic: denies: easy bleeding or easy bruising Psych: denies sadness or hopelessness Physical Exam - Physical Exam Vital Signs: Vital Signs 11/08/17 11/08/17 19:25 21:35 Temperature 98.4 F 97.9 F Pulse Rate 82 64 Respiratory 18 18 Rate Blood Pressure 184/116 Blood Pressure 153/94 [Left] O2 Sat by Pulse 100 99 Oximetry Physical Exam: General: well-nourished, well-developed, no acute distress Head: Normocephalic, atraumatic Eyes: normal sclera ENT: Mucous membranes are pink and moist Neck: trachea midline, neck supple, No neck stiffness, no cervical adenopathy Respiratory: Breath sounds equal bilaterally, no wheezing, rales, or rhonchi Cardio: S1 and S2 present, no murmurs, rubs, gallops, capillary refill is brisk Abdomen: Normoactive bowel sounds, soft abdomen, left upper quadrant tenderness to palpation present, no rigidity, no guarding or rebound tenderness Chest WALL/Back: No tenderness to palpation of the chest wall, no CVA tenderness with percussion Musc: No pitting edema Skin: No rash Neuro: no facial drooping, normal speech Psych: Normal affect ED Course Vital Signs 11/08/17 11/08/17 19:25 21:35 Temperature 98.4 F 97.9 F Pulse Rate 82 64 Respiratory 18 18 Rate Blood Pressure 184/116 Blood Pressure 153/94 [Left] O2 Sat by Pulse 100 99 Oximetry ED Medical Decision Making - Lab Data Result diagrams: 11/08/17 19:41 11/08/17 19:41 - Medical Decision Making The patient was seen and examined by myself. The patient is placed on a optical lathe operator and continuous pulse ox. On initial evaluation, the patient was found to be in no distress. EKG was negative for findings suggestive of acute cardiac infarct. Labs and imaging are obtained. As there are no neuro deficits or other findings on examination concerning for acute intracranial disease process, and as the patient states that symptoms are consistent with previous headaches, a CAT scan of the head will not be obtained at this time. IV access was established and the patient received multiple doses of IV allergies including IV Toradol and IV fentanyl for her pain. Chest x-ray is negative for pneumothorax, focal consolidation, pulmonary vascular congestion, pleural effusion, or other obvious acute cardiopulmonary disease process. Lab results were non-concerning including levels of troponin, WBC, hemoglobin, hematocrit, electrolytes, renal function. The patient was reevaluated and reported that their symptoms were markedly improved. As the patient has a NENA risk score less than 2, and a well's score less than 2, the patient is at low risk of ACS or pulmonary emboli etiology of their symptoms. The patient is stable for discharge with outpatient follow-up. The patient is given follow-up and return instructions. The patient expressed understanding and agreed with the plan. The patient is discharged in stable condition. Critical care attestation.: If time is entered above; I have spent that time in minutes in the direct care of this critically ill patient, excluding procedure time. ED Disposition Clinical Impression: Acute LUQ pain, Acute chest pain Acute nonintractable headache Qualifiers: Headache type: tension-type Qualified Code(s): G44.209 - Tension-type headache , unspecified, not intractable Disposition: DC-01 TO HOME OR SELFCARE Is pt being admited?: No Does the pt Need Aspirin: No Condition: Stable Instructions: Chest Pain (ED), Abdominal Pain (ED), Acute Headache (ED) Referrals: PRIMARY CARE, [Primary Care Provider] - 3-5 Days [facility] [Outside] - 3-5 Days Time of Disposition: 22:24
[2017-11-09 00:43] VITALS: BP 133/82
== END 2017-11-09 00:15 | disposition home or self-care (01) ==
LOC: ED 19:08
DX: R07.89 Other chest pain (principal); R10.12 Left upper quadrant pain; G44.209 Tension-type headache, unspecified, not intractable; I10 Essential (primary) hypertension; E11.9 Type 2 diabetes mellitus without complications; F17.200 Nicotine dependence, unspecified, uncomplicated; Z88.6 Allergy status to analgesic agent; Z91.040 Latex allergy status; Z88.0 Allergy status to penicillin; Z88.2 Allergy status to sulfonamides
CPT/HCPCS: 36415; 71045; 80048; 81001; 84484; 84703; 85025; 93005; 93010; 96374; 96375; 99284; J0360; J1200; J1885; J2405; J3010

== ENCOUNTER 2017-12-06 03:30 | Inpatient (IN) | payer SELFPAY ==
[2017-12-06] MEDS ORDERED: NACL 0.9% 1000 ML 1,000 ML IV ONE ×2 (04:12→07:47)
[2017-12-06 04:29] LABS: Basophils # (Auto) 0.1 K/mm3 (0.0-0.1); Basophils % (Auto) 1.1 % (0.0-1.8); Eosinophils # (Auto) 0.3 K/mm3 (0.0-0.4); Eosinophils % (Auto) 2.6 % (0.0-4.3); Hematocrit 39.1 % (30.3-42.9); Hemoglobin 13.4 gm/dl (10.1-14.3); Lymphocytes # (Auto) 3.5 K/mm3 (1.2-5.4); Lymphocytes % (Auto) 36.3 % (13.4-35.0); Mean Corpuscular HGB Conc 34 % (30-34); Mean Corpuscular Hemoglobin 30 pg (28-32); Mean Corpuscular Volume 87 fl (79-97); Monocytes # (Auto) 0.5 K/mm3 (0.0-0.8); Monocytes % (Auto) 5.6 % (0.0-7.3); Platelet Count 340 K/mm3 (140-440); Red Blood Count 4.49 M/mm3 (3.65-5.03)
[2017-12-06 04:51] LABS: Alanine Aminotransferase 17 units/L (7-56); Albumin 3.6 g/dL (3.9-5); BUN/Creatinine Ratio 14; Blood Urea Nitrogen 11 mg/dL (7-17); Calcium 8.3 mg/dL (8.4-10.2); Hemolysis Index 4; Lipase 32 units/L (13-60)
--- NOTE | 2017-12-06 07:09 | Emergency Department Report ---
ED Abdominal Pain HPI - General Chief Complaint: Abdominal Pain Stated Complaint: ABD PAIN Time Seen by Provider: 12/06/17 07:08 Source: patient, family Mode of arrival: Ambulatory Limitations: No Limitations - History of Present Illness MD Complaint: abdominal pain -: Gradual, days(s) (3) Location: LLQ, RLQ, suprapubic Radiation: none Migration to: no migration Severity: severe Severity scale (0 -10): 8 Quality: cramping, aching Consistency: constant Improves With: nothing Worsens With: nothing Associated Symptoms: denies other symptoms - Related Data LMP (females 10-50): 3 weeks Home Medications Medication Instructions Recorded Confirmed Last Taken No Known Home Medications [No 12/06/17 12/06/17 Unknown Reported Home Medications] Allergies Allergy/AdvReac Type Severity Reaction Status Date / Time acetaminophen [From Tylenol] Allergy Rash Verified 06/17/16 16:17 latex Allergy Hives Verified 06/17/16 16:17 Penicillins Allergy Hives Verified 06/17/16 16:17 sulfamethoxazole Allergy Swelling Verified 12/16/16 09:49 [From Bactrim] trimethoprim [From Bactrim] Allergy Swelling Verified 12/16/16 09:49 ED Review of Systems ROS: Stated complaint: ABD PAIN Other details as noted in HPI Comment: All other systems reviewed and negative Constitutional: denies: chills, fever Eyes: denies: eye pain, eye discharge ENT: denies: ear pain, throat pain Respiratory: denies: cough, orthopnea, shortness of breath Cardiovascular: denies: chest pain, palpitations, dyspnea on exertion Endocrine: no symptoms reported Gastrointestinal: abdominal pain. denies: nausea, vomiting, diarrhea Genitourinary: denies: urgency, dysuria, frequency Musculoskeletal: denies: back pain Skin: denies: rash, lesions Neurological: denies: headache, weakness, numbness Psychiatric: denies: anxiety, depression Hematological/Lymphatic: denies: easy bleeding, easy bruising ED Past Medical Hx - Past Medical History Hx Hypertension: Yes Hx Diabetes: Yes (gestational) Additional medical history: Obesity - Surgical History Additional Surgical History: C-Sections 2007, 2009. mass removed from abd in 2014. L. ankle pain - Social History Smoking Status: Current Some Day Smoker Substance Use Type: None - Medications Home Medications: Home Medications Medication Instructions Recorded Confirmed Last Taken Type No Known Home Medications [No 12/06/17 12/06/17 Unknown History Reported Home Medications] ED Physical Exam - General Limitations: No Limitations General appearance: alert, in no apparent distress - Head Head exam: Present: atraumatic, normocephalic, normal inspection - Eye Eye exam: Present: normal appearance, PERRL, EOMI Pupils: Present: normal accommodation - ENT ENT exam: Present: normal exam, normal orophraynx, mucous membranes moist - Neck Neck exam: Present: normal inspection, full ROM. Absent: tenderness - Respiratory Respiratory exam: Present: normal lung sounds bilaterally. Absent: respiratory distress, wheezes, rales, rhonchi, stridor - Cardiovascular Cardiovascular Exam: Present: regular rate, normal rhythm, normal heart sounds - GI/Abdominal GI/Abdominal exam: Present: soft, tenderness (lower abdomen), guarding, normal bowel sounds. Absent: distended, rebound - Rectal Rectal exam: Present: deferred - External exam: Present: normal external exam Speculum exam: Present: vaginal discharge. Absent: vaginal bleeding, foreign body, tissue, laceration Bi-manual exam: Present: adnexal tenderness (Left), uterine tenderness, other ( [place] was Ms. Gwyn RN.). Absent: cervical motion tendernes, adnexal mass - Extremities Exam Extremities exam: Present: normal inspection, full ROM, normal capillary refill. Absent: pedal edema - Back Exam Back exam: Present: normal inspection, full ROM. Absent: tenderness - Neurological Exam Neurological exam: Present: alert, oriented X3, CN II-XII intact - Psychiatric Psychiatric exam: Present: normal affect, normal mood - Skin Skin exam: Present: warm, dry, intact, normal color. Absent: rash ED Course Vital Signs 12/06/17 12/06/17 12/06/17 04:09 07:00 11:15 Temperature 98.8 F 98.1 F Pulse Rate 107 H 78 Respiratory 18 18 16 Rate Blood Pressure 168/109 131/90 Blood Pressure 149/94 [Left] O2 Sat by Pulse 99 99 Oximetry 12/06/17 13:47 Temperature 98.1 F Pulse Rate 79 Respiratory 16 Rate Blood Pressure Blood Pressure 132/87 [Left] O2 Sat by Pulse Oximetry - Reevaluation(s) Reevaluation #1: 12/06/17 11:36 I consulted the general Surgeon fire protection designer Dr Ellsworth. He wants patient admitted by the hospitalist and he will evaluate patient later this afteroon in the hopsital. Reevaluation #2: 12/06/17 11:38 I discussed patient care with the hospitalist fire protection designer Dr Shoemaker. He will admit patient for further evaluation and management. ED Medical Decision Making - Lab Data Result diagrams: 12/06/17 04:15 12/06/17 04:15 - Radiology Data Radiology results: report reviewed, image reviewed - Medical Decision Making Lower abdominal pain. Critical care attestation.: If time is entered above; I have spent that time in minutes in the direct care of this critically ill patient, excluding procedure time. ED Disposition Clinical Impression: Mass of anterior abdominal wall, Bacterial vaginosis Abdominal pain Qualifiers: Abdominal location: lower abdomen, unspecified Qualified Code(s): R10.30 - Lower abdominal pain, unspecified Disposition: DC-09 OP ADMIT IP TO THIS HOSP Is pt being admited?: Yes Does the pt Need Aspirin: No Condition: Stable Time of Disposition: 11:20
[2017-12-06 07:53] LABS: Bacteria,Urine 1+ /HPF (Negative); Bilirubin,Urine NEG (Negative); Blood,Urine SM (Negative); Color,Urine Yellow (Yellow); Mucus,Urine FEW /HPF; Protein,Urine <15 mg/dL mg/dL (Negative); Urobilinogen,Urine < 2.0 mg/dL (<2.0)
--- NOTE | 2017-12-06 09:21 | Cat Scan Report ---
CT ABDOMEN PELVIS WITH CONTRAST: HISTORY: abdominal pain. COMPARISON: none. TECHNIQUE: Helical CT in 1.25mm intervals following IV contrast. Sagittal and coronal reconstructions. FINDINGS: Lung bases: Normal. Liver: Normal. Biliary system: There are to 5 mm calcified gallstones in the gallbladder. No biliary dilatation or inflammation. Pancreas: Normal. Spleen: Normal. Kidneys/ureters/bladder: Normal. Adrenal glands: Normal. Aorta: Normal. Intestines: Unremarkable given no oral contrast was administered. Appendix: Normal. Pelvic viscera: Normal. Ascites: None. Adenopathy: None. Musculoskeletal: Normal bony structures. There is a slightly heterogeneous and irregular mass like lesion measuring up to 5.1 x 4.4 cm in the anterior pelvic wall. There appears to be in intimate association with the left rectus abdominis muscle. It is unclear if this represents a mass, infectious process or possibly a hematoma. Please correlate with the patient's clinical presentation and history. IMPRESSION: Masslike lesion in the anterior pelvic wall as outlined above. No acute inflammatory process is appreciated within the abdomen. Cholelithiasis.
[2017-12-06] MEDS ORDERED: MORPHINE IV ONE (10:58)
[2017-12-06] MEDS ORDERED: ZOFRAN IV ONE (10:58)
[2017-12-06] MEDS ORDERED: FLAGYL PO ONE (13:28)
[2017-12-06] MEDS: MORPHINE IV PRN ×3 (14:38→22:25)
[2017-12-06] MEDS: HABITROL TD SCH (18:14)
[2017-12-06] MEDS: ZOFRAN IV PRN ×2 (18:14→22:25)
--- NOTE | 2017-12-06 23:05 | Ultrasound Report ---
FINAL REPORT PROCEDURE: US TRANSVAGINAL TECHNIQUE: Real-time transvaginal sonography in multiple planes of the pelvis was performed with image documentation. This examination was performed without Doppler. Vascular abnormalities, including ovarian torsion, will not be detectable without Doppler evaluation. CPT 28573 HISTORY: Pelvic Pain COMPARISON: No prior studies are available for comparison. FINDINGS: UTERUS Size: 9.9 x 5.6 x 5.2 cm. Endometrial thickness: 6 mm. Orientation: anteverted. Cervix: Normal. Fibroids/masses: There are 2 hypoechoic lesions involving the fundus and anterior body measuring 1.2 x 5 1 and 2.3 x 2 centimeters respectively.. RIGHT Ovary: 2.3 x 1.6 x 1.6 cm. Appearance: Normal. LEFT Ovary: 2.9 x 2.0 x 2.7 cm. Appearance: Normal. Pelvic fluid: None. Other: None. IMPRESSION: Small hypoechoic lesions of the uterus most likely represent fibroids. Otherwise unremarkable study..
--- NOTE | 2017-12-06 23:06 | Ultrasound Report ---
FINAL REPORT PROCEDURE: US PELVIS DUPLEX DOPPLER COMP TECHNIQUE: Real-time transabdominal sonography in multiple planes of pelvis was performed with image documentation. This examination was performed without Doppler. Vascular abnormalities, including ovarian torsion, will not be detectable without Doppler evaluation. CPT 47222 HISTORY: Pelvic Pain COMPARISON: No prior studies are available for comparison. FINDINGS: UTERUS Size: 9.9 x 5.6 x 5.2 cm. Endometrial thickness: 6 mm. Orientation: anteverted. Cervix: Normal. Fibroids/masses: There are 2 hypoechoic lesions involving the fundus and anterior body measuring 1.2 x 5 1 and 2.3 x 2 centimeters respectively.. RIGHT Ovary: 2.3 x 1.6 x 1.6 cm. Appearance: Normal. LEFT Ovary: 2.9 x 2.0 x 2.7 cm. Appearance: Normal. Pelvic fluid: None. Other: None. IMPRESSION: Small hypoechoic lesions of the uterus most likely represent fibroids. Otherwise unremarkable study..
[2017-12-07] MEDS: DILAUDID IV PRN ×4 (00:43→23:29)
--- NOTE | 2017-12-07 01:41 | Consultation ---
HISTORY OF PRESENT ILLNESS: This lady was seen in the Emergency Room this morning. She is a 32-year-old black female. She weighs 129 kilograms. She is 5 feet 5 inches. Her BMI is 47.7. She came because of pain that she was experiencing in the left lower quadrant of her abdomen for about 6-8 weeks' duration, on and off and the last 2 days, the pain is becoming unbearable. She had no nausea, no vomiting. She denied any trauma to the area. She was evaluated by our Emergency Room physician and a CAT scan was taken. I saw the x-rays with Dr. Pink. We could see a mass in the abdominal wall in the left lower aspect. It is outside of the abdomen and the patient mentioned that she had a biopsy done about 3 years ago from the same area and she was told there is nothing abnormal too much there. She does not have the report. I did stress on her to get us the report. I gave her our fax number here and I gave her my name. I checked the CT scan with Dr. Pink and there is evidence of a mass that is about 5 x 5 cm located within the abdominal wall on the left lower aspect and this was the tenderness. She denied any cancer in the past. SOCIAL HISTORY: She had 1 child, 8 years old. She smokes every now and then. She drinks every now and then. She is not working at the present time. FAMILY HISTORY: Essentially negative. PHYSICAL EXAMINATION: GENERAL: Showed a well preserved moderately obese black female. She is in no distress. HEAD AND NECK: Negative. NECK: Supple. BREASTS: Symmetrical, no masses. CHEST: Essentially clear. HEART: Sound normal to me. ABDOMEN: Protuberant, soft and benign. There is, however, at one point severe tenderness in the left lower quadrant, may be about a few areas to the umbilicus, more to the left side. EXTREMITIES: Showed no significant edema. IMPRESSION AND PLAN: Left lower abdominal wall mass seen on the CAT scan. Biopsy from the same area done about 3 years ago, according to the patient, did not show anything specific. I had a lengthy talk with the patient as to the need for us to take a biopsy. I saw the films with Dr. Pink and we are going to have a needle biopsy from that area. He will be doing that tomorrow. I indicated above to the patient as well and this was done in the presence of our nursing staff. I am going to give her some full liquids today and do her n.p.o. after midnight. JOB# [id number] OUMAR/ALEXA
--- NOTE | 2017-12-07 07:25 | Event Note ---
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
--- NOTE | 2017-12-07 07:47 | History and Physical Report ---
CHIEF COMPLAINT: Abdominal pain for 2 days' duration. HISTORY OF PRESENT ILLNESS: A 32-year-old female who comes in for periumbilical abdominal pain. Pain is about 8 on a scale of 1-10. Constant cramping and aching. Exacerbated by nothing and does not worsen with anything. The patient had this tumor in the past and was removed. The patient was told it may be a sarcoma, but the patient is not sure about the diagnosis. PAST MEDICAL HISTORY: Significant for hypertension and gestational diabetes. PAST SURGICAL HISTORY: C-sections in 2007 and 2009, and mass removal from abdomen 11/2014. SOCIAL HISTORY: Current smoker, about half a pack a day. FAMILY HISTORY: Hypertension. REVIEW OF SYSTEMS: Significant for abdominal pain, which is persistent and cramping in nature. Otherwise, review of systems is essentially negative. A 14-point review of systems done. PHYSICAL EXAMINATION: GENERAL: Young female, cooperative during examination. VITAL SIGNS: Blood pressure is 109/61, temperature is 97.4, pulse is 75, respirations 20. HEENT: Unremarkable. Pupils equal and reactive. NECK: Supple, no lymphadenopathy, no thyromegaly. LUNGS: Clear to auscultation and percussion. Good air entry. CARDIOVASCULAR SYSTEM: S1, S2 heard. No gallop, no murmur, no rub. Apical impulse in left fifth intercostal space in midclavicular line. ABDOMEN: Soft. No masses could be felt on my exam. Bowel sounds are normal. EXTREMITIES: Good pedal pulses. CENTRAL NERVOUS SYSTEM: Alert and oriented x 4, nonfocal exam. LABORATORY DATA AND IMAGING STUDIES: CAT scan of the abdomen shows a mass-like lesion in the anterior pelvic wall. No acute inflammatory process. There is a slightly heterogeneous and irregular mass like lesion measuring 5.1 x 4.4 cm in anterior pelvic wall. That appears to be in intimate association with left rectus abdominis muscle. It is unclear if there is a presence of mass, infectious process or possibly hematoma. Labs are significant for normal CBC. Sodium is slightly low at 136. Glucose is 122, calcium is 8.3. Albumin is 3.6. Urine negative. ASSESSMENT AND PLAN: 1. Abdominal wall mass. Surgery consulted. It appears to be benign, but will defer to the surgery for muscle biopsy. 2. Hypertension. Continue antihypertensives. 3. Obesity. The patient counseled. 4. Malnutrition. Dietitian consult requested. Albumin is very slightly low. 5. Hyponatremia, very mild. Correct with IV fluids. 6. Deep venous thrombosis prophylaxis, Lovenox 40 mg subcutaneous daily. JOB# [id number] BECCA/NTS
--- NOTE | 2017-12-07 11:24 | Progress Note ---
Assessment and Plan Assessment and plan: --Abdominal wall mass; Scheduled for biopsy today, benign lesion, surgery following --Hypertension; moderate control, continue current antihypertensives When necessary medications --Morbid obesity; BMI 48.1; counseling done, dietary modification and exercise as tolerated And weight reduction when medically stable --Malnutrition; supportive care, nutrition consult --Mild hyponatremia; mild improvement closely monitor --DVT prophylaxis; Lovenox Closely monitor the patient and adjust the management as needed History Interval history: Patient seen and examined medical records reviewed Patient feels better no new complaints Scheduled for biopsy of abdominal wall mass today Vital signs reviewed Hospitalist Physical - Constitutional Vitals: Temp Pulse Resp BP Pulse Ox 97.8 F 75 20 100/59 97 12/07/17 05:56 12/07/17 05:56 12/07/17 08:30 12/07/17 05:56 12/07/17 05:56 General appearance: Present: no acute distress, well-nourished, obese (morbidly obese) - EENT Eyes: Present: PERRL, EOM intact - Neck Neck: Present: supple, normal ROM - Respiratory Respiratory effort: normal Respiratory: negative: rales, rhonchi, wheezing - Cardiovascular Rhythm: regular Heart Sounds: Present: S1 & S2 - Extremities Extremities: no ischemia, No edema - Abdominal General gastrointestinal: soft, non-tender, non-distended, normal bowel sounds - Integumentary Integumentary: Present: clear, warm - Psychiatric Psychiatric: appropriate mood/affect, cooperative - Neurologic Neurologic: CNII-XII intact, moves all extremities Results - Labs CBC & Chem 7: 12/06/17 04:15 12/06/17 04:15 Labs: Laboratory Last Values WBC 9.7 K/mm3 (4.5-11.0) 12/06/17 04:15 RBC 4.49 M/mm3 (3.65-5.03) 12/06/17 04:15 Hgb 13.4 gm/dl (10.1-14.3) 12/06/17 04:15 Hct 39.1 % (30.3-42.9) 12/06/17 04:15 MCV 87 fl (79-97) 12/06/17 04:15 MCH 30 pg (28-32) 12/06/17 04:15 MCHC 34 % (30-34) 12/06/17 04:15 RDW 14.0 % (13.2-15.2) 12/06/17 04:15 Plt Count 340 K/mm3 (140-440) 12/06/17 04:15 Lymph % (Auto) 36.3 % (13.4-35.0) H 12/06/17 04:15 [place] % (Auto) 5.6 % (0.0-7.3) 12/06/17 04:15 Eos % (Auto) 2.6 % (0.0-4.3) 12/06/17 04:15 Baso % (Auto) 1.1 % (0.0-1.8) 12/06/17 04:15 Lymph # 3.5 K/mm3 (1.2-5.4) 12/06/17 04:15 [place] # 0.5 K/mm3 (0.0-0.8) 12/06/17 04:15 Eos # 0.3 K/mm3 (0.0-0.4) 12/06/17 04:15 Baso # 0.1 K/mm3 (0.0-0.1) 12/06/17 04:15 Seg Neutrophils % 54.4 % (40.0-70.0) 12/06/17 04:15 Seg Neutrophils # 5.2 K/mm3 (1.8-7.7) 12/06/17 04:15 Sodium 136 mmol/L (137-145) L 12/06/17 04:15 Potassium 3.7 mmol/L (3.6-5.0) 12/06/17 04:15 Chloride 97.3 mmol/L (98-107) L 12/06/17 04:15 Carbon Dioxide 27 mmol/L (22-30) 12/06/17 04:15 Anion Gap 15 mmol/L 12/06/17 04:15 BUN 11 mg/dL (7-17) 12/06/17 04:15 Creatinine 0.8 mg/dL (0.7-1.2) 12/06/17 04:15 Estimated GFR > 60 ml/min 12/06/17 04:15 BUN/Creatinine Ratio 14 % 12/06/17 04:15 Glucose 122 mg/dL (65-100) H 12/06/17 04:15 Calcium 8.3 mg/dL (8.4-10.2) L 12/06/17 04:15 Total Bilirubin < 0.20 mg/dL (0.1-1.2) 12/06/17 04:15 AST 19 units/L (5-40) 12/06/17 04:15 ALT 17 units/L (7-56) 12/06/17 04:15 Alkaline Phosphatase 79 units/L (35-129) 12/06/17 04:15 Total Protein 6.6 g/dL (6.3-8.2) 12/06/17 04:15 Albumin 3.6 g/dL (3.9-5) L 12/06/17 04:15 Albumin/Globulin Ratio 1.2 % 12/06/17 04:15 Lipase 32 units/L (13-60) 12/06/17 04:15 HCG, Qual Negative (Negative) 12/06/17 04:15 Urine Color Yellow (Yellow) 12/06/17 06:42 Urine Turbidity Slightly-cloudy (Clear) 12/06/17 06:42 Urine pH 6.0 (5.0-7.0) 12/06/17 06:42 Ur Specific [place] 1.020 (1.003-1.030) 12/06/17 06:42 Urine Protein <15 mg/dl mg/dL (Negative) 12/06/17 06:42 Urine Glucose (UA) Neg mg/dL (Negative) 12/06/17 06:42 Urine Ketones Neg mg/dL (Negative) 12/06/17 06:42 Urine Blood Sm (Negative) 12/06/17 06:42 Urine Nitrite Neg (Negative) 12/06/17 06:42 Urine Bilirubin Neg (Negative) 12/06/17 06:42 Urine Urobilinogen < 2.0 mg/dL (<2.0) 12/06/17 06:42 Ur Leukocyte Esterase Tr (Negative) 12/06/17 06:42 Urine WBC (Auto) 4.0 /HPF (0.0-6.0) 12/06/17 06:42 Urine RBC (Auto) 2.0 /HPF (0.0-6.0) 12/06/17 06:42 U Epithel Cells (Auto) 4.0 /HPF (0-13.0) 12/06/17 06:42 Urine Bacteria (Auto) 1+ /HPF (Negative) 12/06/17 06:42 Urine Mucus Few /HPF 12/06/17 06:42
[2017-12-07] MEDS: NACL 0.9% 1000 ML 1,000 ML IV SCH ×2 (11:55→23:30)
[2017-12-07] MEDS: HABITROL TD SCH (11:58)
[2017-12-07] MEDS ORDERED: SUBLIMAZE IV ONE (13:07)
[2017-12-07] MEDS ORDERED: VERSED IV ONE ×2 (13:07→14:00)
[2017-12-07 13:53] LABS: INR 0.97 (0.87-1.13)
[2017-12-07 13:54] LABS: Partial Thromboplastin Time 27.6 Sec. (24.2-36.6)
[2017-12-07] MEDS ORDERED: SUBLIMAZE ONE (14:01)
[2017-12-07] MEDS ORDERED: ZOFRAN ONE (14:15)
[2017-12-07] MEDS: ZOFRAN IV PRN (14:27)
--- NOTE | 2017-12-07 15:01 | Progress Note ---
Subjective Patient Reports: Positive: feels better, still having pain Narrative: for Bx today . looks OK still point tenderness LLQ , will keep in hospital awaiting Path result Objective Vital Signs - 12hr 12/07/17 12/07/17 12/07/17 05:56 08:30 11:51 Temperature 97.8 F 98.2 F Pulse Rate 75 70 Respiratory 18 20 20 Rate Blood Pressure 100/59 113/57 O2 Sat by Pulse 97 99 Oximetry 12/07/17 12:45 Temperature Pulse Rate Respiratory 20 Rate Blood Pressure O2 Sat by Pulse Oximetry - Labs 12/06/17 04:15 12/06/17 04:15
--- NOTE | 2017-12-07 15:07 | Cat Scan Report ---
CT BIOPSY OF ABDOMINAL/RETRO MASS History: Abdominal wall mass Description of procedure: Informed consent was obtained. Sterile technique was utilized. 1% lidocaine for skin anesthesia. Conscious sedation was accomplished with Versed and fentanyl. The patient was sedated for 15 minutes. Intra-observer time of 15 minutes. Independent cardiorespiratory monitoring by RN. Using CT guidance, a 17-gauge introducer needle was advanced to the leading edge of an anterior abdominal wall mass measuring approximately 5.1 x 4.4 cm in axial plane. 3 separate 18-gauge core biopsies were obtained for pathology. The pathologist deemed the samples adequate. The patient tolerated the procedure without difficulty. Impression: Successful CT-guided biopsy of the anterior abdominal wall mass as described.
[2017-12-07] MEDS: NORVASC PO SCH (16:50)
[2017-12-07] MEDS ORDERED: LOVENOX SUB-Q SCH (22:00)
[2017-12-08 06:34] LABS: Basophils # (Auto) 0.1 K/mm3 (0.0-0.1); Basophils % (Auto) 0.8 % (0.0-1.8); Eosinophils # (Auto) 0.2 K/mm3 (0.0-0.4); Eosinophils % (Auto) 3.1 % (0.0-4.3); Hemoglobin 12.8 gm/dl (10.1-14.3); Lymphocytes # (Auto) 2.6 K/mm3 (1.2-5.4); Lymphocytes % (Auto) 36.2 % (13.4-35.0); Mean Corpuscular HGB Conc 34 % (30-34); Mean Corpuscular Hemoglobin 30 pg (28-32); Mean Corpuscular Volume 89 fl (79-97); Monocytes # (Auto) 0.4 K/mm3 (0.0-0.8); Monocytes % (Auto) 5.7 % (0.0-7.3); Platelet Count 334 K/mm3 (140-440); Red Blood Count 4.27 M/mm3 (3.65-5.03)
[2017-12-08 06:53] LABS: BUN/Creatinine Ratio 15; Blood Urea Nitrogen 9 mg/dL (7-17); Calcium 8.2 mg/dL (8.4-10.2); Hemolysis Index 3
[2017-12-08] MEDS: HABITROL TD SCH (10:00)
[2017-12-08] MEDS: DILAUDID IV PRN (10:00)
[2017-12-08] MEDS: NORVASC PO SCH (10:00)
[2017-12-08] MEDS: ZOFRAN IV PRN (12:30)
[2017-12-08 12:36] VITALS: BP 141/93
--- NOTE | 2017-12-08 13:25 | Progress Note ---
Objective Vital Signs - 12hr 12/08/17 12/08/17 12/08/17 05:17 09:53 10:00 Temperature 98.5 F Pulse Rate 78 88 Respiratory 24 Rate Blood Pressure 108/60 119/77 119/77 O2 Sat by Pulse 99 Oximetry 12/08/17 11:25 Temperature 98.2 F Pulse Rate 81 Respiratory 20 Rate Blood Pressure 141/93 O2 Sat by Pulse 94 Oximetry - Labs 12/08/17 05:44 12/08/17 05:44 Diabetes panel 12/08/17 Range/Units 05:44 Sodium 138 (137-145) mmol/L Potassium 3.7 (3.6-5.0) mmol/L Chloride 99.2 (98-107) mmol/L Carbon Dioxide 27 (22-30) mmol/L BUN 9 (7-17) mg/dL Creatinine 0.6 L (0.7-1.2) mg/dL Glucose 148 H (65-100) mg/dL Calcium 8.2 L (8.4-10.2) mg/dL Calcium panel 12/08/17 Range/Units 05:44 Calcium 8.2 L (8.4-10.2) mg/dL Pituitary panel 12/08/17 Range/Units 05:44 Sodium 138 (137-145) mmol/L Potassium 3.7 (3.6-5.0) mmol/L Chloride 99.2 (98-107) mmol/L Carbon Dioxide 27 (22-30) mmol/L BUN 9 (7-17) mg/dL Creatinine 0.6 L (0.7-1.2) mg/dL Glucose 148 H (65-100) mg/dL Calcium 8.2 L (8.4-10.2) mg/dL Adrenal panel 12/08/17 Range/Units 05:44 Sodium 138 (137-145) mmol/L Potassium 3.7 (3.6-5.0) mmol/L Chloride 99.2 (98-107) mmol/L Carbon Dioxide 27 (22-30) mmol/L BUN 9 (7-17) mg/dL Creatinine 0.6 L (0.7-1.2) mg/dL Glucose 148 H (65-100) mg/dL Calcium 8.2 L (8.4-10.2) mg/dL
--- NOTE | 2017-12-08 14:38 | Discharge Summary ---
Providers - Providers Date of Admission: 12/06/17 11:43 Date of discharge: 12/08/17 Attending physician: JAMIE INTERIANO 12/06/17 11:22 Consult to Physician [CONS] Stat Comment: Consulting Provider: RAGHU SCHROEDER Physician Instructions: Reason For Exam: Abdominal Pain 12/07/17 07:34 Consult to Dietitian/Nutrition [CONS] Routine Physician Instructions: Reason For Exam: Reason for Consult: Pt needs oral supplement Primary care physician: [facility] Hospitalization Condition: Stable Hospital course: --Abdominal wall mass; Scheduled for biopsy today, benign lesion, surgery following --Hypertension; moderate control, continue current antihypertensives When necessary medications --Morbid obesity; BMI 48.1; counseling done, dietary modification and exercise as tolerated And weight reduction when medically stable --Malnutrition; supportive care, nutrition consult --Mild hyponatremia; mild improvement closely monitor --DVT prophylaxis; Lovenox Closely monitor the patient and adjust the management as needed Disposition: [facility] TO HOME OR SELFCARE Time spent for discharge: 31 min Core Measure Documentation - Palliative Care Palliative Care/ Comfort Measures: Not Applicable - Core Measures Any of the following diagnoses?: none Exam - Constitutional Vitals: Temp Pulse Resp BP Pulse Ox 98.2 F 81 20 141/93 94 12/08/17 11:25 12/08/17 11:25 12/08/17 11:25 12/08/17 11:25 12/08/17 11:25 General appearance: Present: no acute distress, well-nourished, obese (PICU obese) - EENT Eyes: Present: PERRL, EOM intact - Neck Neck: Present: supple, normal ROM - Respiratory Respiratory effort: normal Respiratory: negative: rales, rhonchi, wheezing - Cardiovascular Rhythm: regular Heart Sounds: Present: S1 & S2 - Extremities Extremities: no ischemia, No edema - Abdominal General gastrointestinal: Present: soft, non-tender, non-distended, normal bowel sounds - Integumentary Integumentary: Present: clear, warm - Musculoskeletal Musculoskeletal: strength equal bilaterally - Psychiatric Psychiatric: appropriate mood/affect, cooperative - Neurologic Neurologic: CNII-XII intact, moves all extremities Plan Activity: no restrictions Diet: regular Special Instructions: smoking cessation Follow up with: PRIMARY CAREMD [Primary Care Provider] - 3-5 Days RAGHU SCHROEDER MD [Staff Physician] - 7 Days Forms: STI Treatment and Prevention, Work/School Release Form Prescriptions: amLODIPine [Norvasc] 5 mg PO DAILY #30 tab metroNIDAZOLE [Flagyl] 500 mg PO Q8HR #21 tablet Nicotine [Habitrol] 14 mg TD QDAY #30 patch
--- NOTE | 2017-12-08 21:04 | Discharge Summary ---
FINAL DIAGNOSES: Complicated cyst, abdominal wall, left lower aspect pending surgery and pathology report. This was done via needle biopsy done on her yesterday. HOSPITAL COURSE: This patient gives a history of surgery in the abdominal wall about 3-4 years ago. At that point, she was told that she had a benign tumor in the area. This was done in the . We tried to get hold of the path report, she could not. At this point, pain came up in the last 2-4 weeks and is progressively increasing. It would not change; however, her positioning. She had no nausea nor vomiting. She never had abdominal operations in the past otherwise. She has one child. She does not drink nor does smoke. ALLERGIES: She is allergic to PENICILLIN, LATEX AND TYLENOL. PHYSICAL EXAMINATION: GENERAL: When she came, she was well-preserved, obese black female. She is in no distress. HEAD AND NECK: Negative. NECK: Supple. BREASTS: Symmetric. No specific masses. CHEST: Essentially clear. HEART: Sound normal. ABDOMEN: Protuberant, soft, moderately severe tenderness in the left lower quadrant area. No specific masses could be felt in that area, however. EXTREMITIES: Showed no edema. 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 I read the slides today with our pathologist. At this point, I believe we need to have her discharged to be readmitted early next week to remove the mass and she is aware of that. We had a social service to see her as well. To continue her medications and to be on a regular diet. To call me if she has a problem, otherwise to contact me early next week. JOB# [id number] OUMAR/ALEXA
== END 2017-12-08 16:00 | disposition home or self-care (01) | DRG 357 ==
LOC: ED 03:30 → 3A 11:43
PROVIDERS: ADMIT Internal Medicine; ATTEND Internal Medicine
PROC: 0WBF3ZX Excision of Abdominal Wall, Percutaneous Approach, Diagnostic (ICD-10-PCS; principal; 2017-12-07)
DX: K66.8 Other specified disorders of peritoneum (principal); Z68.42 Body mass index [BMI] 45.0-49.9, adult; E46 Unspecified protein-calorie malnutrition; E87.1 Hypo-osmolality and hyponatremia; R19.09 Other intra-abdominal and pelvic swelling, mass and lump; I10 Essential (primary) hypertension; E66.01 Morbid (severe) obesity due to excess calories; E11.9 Type 2 diabetes mellitus without complications; F17.200 Nicotine dependence, unspecified, uncomplicated; N76.0 Acute vaginitis; Z71.3 Dietary counseling and surveillance; Z88.0 Allergy status to penicillin; Z91.040 Latex allergy status; Z82.49 Family history of ischemic heart disease and other diseases of the circulatory system
CPT/HCPCS: 36415; 49180; 74177; 76830; 77012; 80048; 80053; 81001; 83690; 84703; 85025; 85610; 85730; 87116; 87210; 87591; 88173; 88305; 88333; 88334; 88342; 93975; 94760; 99406; J1170; J1650; J2250; J2270; J2405; J3010; J7030; Q9967

== ENCOUNTER 2018-07-29 14:08 | Emergency (ER) | payer OTHER, SELFPAY ==
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
[2018-07-29] MEDS ORDERED: ADRENALIN ONE (17:55)
== END 2018-07-29 17:11 ==
LOC: ED 14:08
DX: I46.9 Cardiac arrest, cause unspecified (principal); I10 Essential (primary) hypertension; E11.9 Type 2 diabetes mellitus without complications; F17.200 Nicotine dependence, unspecified, uncomplicated
CPT/HCPCS: 99285; J0171